=== PATIENT | male | born 1970 | race Caucasian/White ===

== ENCOUNTER 2020-07-27 12:02 | Emergency (ER) | payer OTHER ==
[~2020-07-27] VITALS: Ht 188 cm; Wt 80.0 kg
--- NOTE | 2020-07-27 12:19 | NUR ---
PT BIB EMS FOR INJURY TO LEFT FINGERS FROM WORK, LACERATION AND AMPUTATION TO MIDDLE FINGER.
[2020-07-27] MEDS ORDERED: BUPIVACAINE 0.25% ONE (12:56)
[2020-07-27] MEDS ORDERED: LIDOCAINE-MPF 1%, 5ML ONE (12:56)
[2020-07-27] MEDS ORDERED: BUPIVACAINE/PF 0.25% INFIL ONE (13:00)
[2020-07-27] MEDS ORDERED: LIDOCAINE-MPF 1%, 5ML INFIL ONE (13:00)
[2020-07-27] MEDS ORDERED: CEFAZOLIN 1,000 MG IM ONE (14:00)
[2020-07-27] MEDS ORDERED: CEFAZOLIN 1,000 MG ONE (14:16)
--- NOTE | 2020-07-27 14:17 | NUR ---
TASK RN NOTE: ADIS MENESES IN AT BEDSIDE FOR LAC REPAIR. AWAITING COMPLETION OF REPAIR PRIOR TO ANCEF ADMINISTRATION. NAD NOTED IN PT AT THIS TIME.
[2020-07-27] MEDS ORDERED: NEOSPORIN OINT. PKT 1 PACKET ONE (14:40)
--- NOTE | 2020-07-27 15:17 | NUR ---
Patient/Caregiver given discharge instructions and they have confirmed that they understand the instructions. Patient ambulatory with steady gait.
[2020-07-27 15:34] VITALS: BP 135/81
== END 2020-07-27 15:35 | disposition home or self-care (01) ==
LOC: ED 15:19
DX: S68.115A Complete traumatic metacarpophalangeal amputation of left ring finger, initial encounter (principal); X58.XXXA Exposure to other specified factors, initial encounter; Y93.89 Activity, other specified; Y92.89 Other specified places as the place of occurrence of the external cause; Y99.0 Civilian activity done for income or pay
CPT/HCPCS: 12042; 73140; 96372; 99284; J0690